=== PATIENT | female | born 1935 | race Caucasian/White ===

== ENCOUNTER 2019-10-12 00:18 | Outpatient (CLI) | payer MEDICARE, OTHER, SELFPAY ==
[2019-10-12 18:54] LABS: SARS-CoV-2 RNA PCR Negative
== END 2019-10-12 00:19 | disposition home or self-care (01) ==
LOC: ANHCOVIDDT 00:22
PROVIDERS: PCP Pediatrics; Visit Provider Internal Medicine Gastroenterology
DX: Z01.812 Encounter for preprocedural laboratory examination (principal); Z20.828 Contact with and (suspected) exposure to other viral communicable diseases
CPT/HCPCS: 87635; C9803; U0003

== ENCOUNTER 2019-10-14 00:38 | Day surgery (SDC) | payer MEDICARE, OTHER, SELFPAY ==
--- NOTE | 2019-10-14 08:00 | P.CONGI_ITS ---
Assessment and Plan Assessment and plan (1) MARIA LUISA (iron deficiency anemia): Code(s): D50.9 - Iron deficiency anemia, unspecified Status: Acute Assessment and Plan: Patient with iron deficiency anemia and diagnosed incidentally on routine screening exam. Also with stool Hemoccult positive stools in 3/3 examples. Plan is for GI endoscopy including both colonoscopy an EGD to assess more thoroughly the possible etiology for this iron replacement is subsequently advised. (2) Occult blood in stools: Code(s): R19.5 - Other fecal abnormalities Status: Acute GI Consult Note Consult date/time: 10/14/19 08:00 HPI: Monique Rosales is a 84 year old female seen in evaluation at the request of Dr Talon Merchant. Patient seen in evaluation because of anemia. She had routine lab testing in July of 2019 finding at which time she was found to be anemic with microcytic indices. Iron studies were found to be consistent with iron deficiency. Recent stool Hemoccult test was found to be positive on 3 o ccasions. Patient denies any obvious blood in her stools. She states her weight appetite bowel movements are normal. She denies abdominal pain she has had no bleeding. Her family history is noncontributory. Review of Systems Review of Systems: All systems reviewed & are unremarkable except as noted in HPI and below Meds Home Medications and Allergies Home Medications Medication Instructions Recorded Confirmed Type aspirin 325 mg PO DAILY 10/06/19 10/06/19 History levothyroxine 50 mcg PO DAILY 10/06/19 10/06/19 History Allergies Allergy/AdvReac Type Severity Reaction Status Date / Time No Known Allergies Allergy Verified 10/14/19 08:00 Exam Narrative: Exam Narrative: Physical exam reveals patient to be alert. Vital signs stable. HEENT exam unremarkable. Lungs are clear to auscultation and percussion. Heart is without murmur or extra sounds. Abdominal exam bowel sounds are present soft nontender with no organomegaly. Digital external rectal exam is normal.
[2019-10-14 08:01] VITALS: BP 183/117; PULSE 118; RESP 18; TEMP 36.3; O2SAT 99
--- NOTE | 2019-10-14 08:19 | ECG_ITS ---
Measurements Intervals [place] Rate: 105 P: W[place]: 0 QRS: 53 QRSD: 92 T: 5 QT: 328 QTc: 434 Interpretive Statements ATRIAL FLUTTER/TACHYCARDIA WITH RAPID VENTRICULAR RESPONSE VENTRICULAR PREMATURE COMPLEXES BORDERLINE ST-T WAVE ABNORMALITY- INFERIOR LEADS BASELINE ARTIFACT- V5 ABNORMAL ECG Electronically Signed On 10-14-2019 8:29:31 CDT by Roby Garza D.O.
[2019-10-14] MEDS: LACTATED RINGERS 1,000 ML 150 ML IV CONT (08:30)
--- NOTE | 2019-10-14 08:40 | SUR.PREOP ---
Spoke with Galina Arnold NP about new consult from Dr Sloan regarding new Aflutter.
--- NOTE | 2019-10-14 09:57 | WPDANESEPPF ---
Anes - Initial Pre Proc Eval Procedure: Operation Date: 10/14/19 08:30 Proposed Procedures p Esophagogastroduodenoscopy & Colonoscopy - Lowell Crowe MD Date/Time: 10/14/19 09:57 Surgeon: Lowell Crowe MD Pre Op Diagnosis: Microcytic Anemia Patient Data Age: 84 Gender: F Height: 5 ft 7 in Weight: 88.5 kg Last Vital Signs Temp 97.4 F L 10/14/19 08:01 Pulse 118 H 10/14/19 08:01 Resp 18 10/14/19 08:01 BP 183/117 H 10/14/19 08:01 Pulse Ox 99 10/14/19 08:01 Allergies Allergy/AdvReac Type Severity Reaction Status Date / Time No Known Allergies Allergy Verified 10/14/19 08:00 Home Medications Medication Instructions Recorded Confirmed Type aspirin 325 mg PO DAILY 10/06/19 10/06/19 History levothyroxine 50 mcg PO DAILY 10/06/19 10/14/19 History Patient hx anesthesia problems: none Family hx anesthesia problems: none [facility] Past Medical History Medical History (Updated 10/14/19 @ 09:56 by Chance Sloan MD) Anemia Atrial fibrillation had new onset AF; apparently had in July 2019; started on ASA; Cardiology saw this am and thought could proceed with procedure; will monitior post with monitoring and Metoprolol Hypothyroid Anes - Eval Final PreProcedure Day of Procedure 10/14/19 09:57 Patient weight: normal Heart: irregular rhythm Lungs: clear to auscultation Airway: Mallampati scale class II Neurological: alert and oriented Last oral intake: >/= 8 hours ASA classification: III Emergent: no Anesthetic plan: proceed Anesthesia type and monitoring: general GIVS and standard monitoring Informed Consent: The patient's anesthetic plan and its attendant risks and benefits were discussed with the patient/family/POA. Questions were solicited and answers provided to the satisfaction of the patient/family/POA.
[2019-10-14] MEDS: BENZOCAINE (*SP) 60 ML SPRAY CAN (HURRICAINE) 1 SPRAY MUCOUS MEM (10:06)
--- NOTE | 2019-10-14 10:15 | WPDANESEPPF ---
Anes - Initial Pre Proc Eval Procedure: Operation Date: 10/14/19 08:30 Proposed Procedures p Esophagogastroduodenoscopy & Colonoscopy - Lowell Crowe MD Date/Time: 10/14/19 10:15 Surgeon: Lowell Crowe MD Pre Op Diagnosis: Microcytic Anemia Patient Data Age: 84 Gender: F Height: 5 ft 7 in Weight: 88.5 kg Last Vital Signs Temp 97.4 F L 10/14/19 08:01 Pulse 118 H 10/14/19 08:01 Resp 18 10/14/19 08:01 BP 183/117 H 10/14/19 08:01 Pulse Ox 99 10/14/19 08:01 Allergies Allergy/AdvReac Type Severity Reaction Status Date / Time No Known Allergies Allergy Verified 10/14/19 08:00 Home Medications Medication Instructions Recorded Confirmed Type aspirin 325 mg PO DAILY 10/06/19 10/06/19 History levothyroxine 50 mcg PO DAILY 10/06/19 10/14/19 History metoprolol tartrate 25 mg PO Q12H #60 tablet 10/14/19 Rx Patient hx anesthesia problems: none Family hx anesthesia problems: none COUNTS INCLUDE 234 BEDS AT THE [facility] Past Medical History Medical History (Updated 10/14/19 @ 09:56 by Chance Sloan MD) Anemia Atrial fibrillation had new onset AF; apparently had in July 2019; started on ASA; Cardiology saw this am and thought could proceed with procedure; will monitior post with monitoring and Metoprolol Hypothyroid Anes - Eval Final PreProcedure Day of Procedure 10/14/19 10:15 Informed Consent: The patient's anesthetic plan and its attendant risks and benefits were discussed with the patient/family/POA. Questions were solicited and answers provided to the satisfaction of the patient/family/POA.
--- NOTE | 2019-10-14 10:22 | PM.CNCAR ---
Assessment and Plan Assessment and plan (1) Atrial flutter with rapid ventricular response: Code(s): I48.92 - Unspecified atrial flutter Status: Acute Assessment and Plan: New diagnosis apparently since July. patient is completely asymptomatic. She declined systemic anticoagulation advised by her PCP in July agreeing only to aspirin 325 mg daily. She was also noted to be anemic at that time. Heart rate ranged from low 100s to up to 150 beats per minute better controlled at this time. -Systemic anticoagulation advised depending upon results of endoscopy if deemed appropriate. We discussed the relative risks and benefits with aspirin versus systemic anticoagulation. All questions answered to her satisfaction. Patient is not a great anticoagulation at this time as she states her of a bleed in his head on anticoagulation. I emphasized with her in this regard and explained circumstances and the perceived high risk for embolic stroke versus intra cerebral bleed. Patient understands but does not agree at this time. 1. From a cardiac perspective there is no clear contraindication to endoscopy as planned. Patient tolerated procedure well as noted in the system after my evaluation. findings noted as documented in the HPI. Aspirin at direction GI as this will increase bleeding risk. 2. Provided patient is not sustaining higher than 130 beats per minute she may be discharged on Metoprolol 25mg BID. She agrees only to ASA 325mg daily. We discussed bleeding risk accordingly and dependents risks dependent upon findings. Discussed with Anesthesiology to give IV Metoprolol for HR control who agreed. 3. Outpatient 48 Hour Holter monitor in our office 4. 2D Echo as outpatient to be set up in our office 5. Follow up in our office within 2 weeks. 6. If pt sustaining >130bpm favor admission to Hospitalist Service and we will follow along in consultation. Thank you very much for this consultation. Please do not hesitate to contact us with any additional questions or concerns. (2) HTN (hypertension): Code(s): I10 - Essential (primary) hypertension Status: Acute Assessment and Plan: BP significantly elevated at presentation, she is not on antihypertensives home. Metoprolol will be initiated. Repeat blood pressure and remains significantly elevated recommendations to follow or if BP reasonable defer to PCP for management. would avoid initiating multiple medications at this time as she remains on an outpatient basis. (3) Occult blood in stools: Code(s): R19.5 - Other fecal abnormalities Status: Acute Assessment and Plan: Per GI. (4) MARIA LUISA (iron deficiency anemia): Code(s): D50.9 - Iron deficiency anemia, unspecified Status: Acute Assessment and Plan: Per GI and PCP. Labs unavailable for review. (5) Hypothyroid: Code(s): E03.9 - Hypothyroidism, unspecified Status: Acute Assessment and Plan: Levothyroxine. Review labs when available. History of Present Illness History of Present Illness Consult date/time: Date of service: 10/14/19 10:22 This is a cardiology consultation at request of Dr. Sloan of Anesthesiology for our opinion regarding atrial flutter with rapid ventricular response. Patient seen at bedside endoscopy lab. Requesting physician: Chance Sloan MD Consult reason: atrial fibrillation (atrial flutter with RVR) Reason For Visit: Microcytic Anemia Narrative: Patient is a very pleasant 84-year-old female with past medical history significant for Hypothyroidism and recent diagnosis of anemia who presents as an outpatient for scheduled upper endoscopy. Patient reports having evaluation by her PCP in July were was noted her heart rate was elevated for which Eliquis recommended. She declined at that time given complications or experience with head bleed. She agreed only to aspirin 325 mg daily. No additional me
--- NOTE | 2019-10-14 10:25 | SUR.OPER ---
1001 10/14/19 preop rajiv Singh called son in law [place], when pt on the way back to procedure room
[2019-10-14 10:45] VITALS: BP 112/77; PULSE 87; RESP 20; O2SAT 97
[2019-10-14 10:55] VITALS: BP 107/61; PULSE 94; RESP 18; O2SAT 97
[2019-10-14 11:05] VITALS: BP 111/57; PULSE 97; RESP 20; O2SAT 99
[2019-10-14 11:15] VITALS: BP 141/98; PULSE 92; RESP 20; O2SAT 100
--- NOTE | 2019-10-14 11:23 | SUR.PHASEII ---
1116: DR MUÑOZ NOTIFIED PT AWAKE AND ALERT, B/P 141/98, HR 92. NO NEW ORDERS.
--- NOTE | 2019-10-14 11:42 | SUR.PHASEII ---
1135: PT DISCHARGED. ALL INSTRUCTIONS FROM GI LAB AND CARDIOLOGY GIVEN AND EXPLAINED TO SON IN LAW TALIA. STATES UNDERSTANDING. PT TAKEN TO CARDIOLOGY OFFICE WITH TALIA, NO CONCERNS.
== END 2019-10-14 11:35 | disposition home or self-care (01) ==
PROVIDERS: PCP Pediatrics; Visit Provider Internal Medicine Gastroenterology
PROC: 0DJ08ZZ Inspection of Upper Intestinal Tract, Via Natural or Artificial Opening Endoscopic (ICD-10-PCS; CPT 43235; principal; 2019-10-14 08:30)
DX: D50.9 Iron deficiency anemia, unspecified (principal); R19.5 Other fecal abnormalities; K64.8 Other hemorrhoids; K21.0 Gastro-esophageal reflux disease with esophagitis; Q39.4 Esophageal web; K44.9 Diaphragmatic hernia without obstruction or gangrene; K31.7 Polyp of stomach and duodenum; I48.92 Unspecified atrial flutter; I10 Essential (primary) hypertension; E03.9 Hypothyroidism, unspecified; Z79.82 Long term (current) use of aspirin
CPT/HCPCS: 43450; 43235; 45378; 93005; J2704; J7120

== ENCOUNTER 2019-12-15 03:34 | Outpatient (CLI) | payer MEDICARE, OTHER, SELFPAY ==
[2019-12-15 19:05] LABS: SARS-CoV-2 RNA PCR Negative
== END 2019-12-15 03:35 | disposition home or self-care (01) ==
LOC: ANHCOVIDDT 03:34
PROVIDERS: PCP Pediatrics; Visit Provider Internal Medicine Gastroenterology
DX: Z01.812 Encounter for preprocedural laboratory examination (principal); Z20.828 Contact with and (suspected) exposure to other viral communicable diseases
CPT/HCPCS: 87635; C9803; U0003

== ENCOUNTER 2019-12-17 02:34 | Day surgery (SDC) | payer MEDICARE, OTHER, SELFPAY ==
[2019-12-09 15:05] VITALS: BMI 29.7
[2019-12-17 09:07] VITALS: BP 177/61; PULSE 77; RESP 16; TEMP 36.1; O2SAT 96; BMI 31.2
[2019-12-17] MEDS: LACTATED RINGERS 1,000 ML 150 ML IV CONT (09:24)
--- NOTE | 2019-12-17 09:42 | WPDANESEPPF ---
Anes - Initial Pre Proc Eval Procedure: Operation Date: 12/17/19 10:00 Proposed Procedures p Esophagogastroduodenoscopy - Lowell Crowe MD Date/Time: 12/17/19 09:42 Surgeon: Lowell Crowe MD Pre Op Diagnosis: esophagitis Patient Data Age: 84 Gender: F Height: 1.7 m Weight: 90.6 kg Last Vital Signs Temp 36.1 C L 12/17/19 09:07 Pulse 77 12/17/19 09:07 Resp 16 12/17/19 09:07 BP 177/61 H 12/17/19 09:07 Pulse Ox 96 12/17/19 09:07 Allergies Allergy/AdvReac Type Severity Reaction Status Date / Time No Known Allergies Allergy Verified 12/17/19 09:06 Home Medications Medication Instructions Recorded Confirmed Type aspirin 325 mg PO DAILY 10/06/19 12/17/19 History levothyroxine 50 mcg PO DAILY 10/06/19 12/17/19 History metoprolol tartrate 25 mg PO Q12H #60 tablet 10/14/19 12/17/19 Rx ferrous sulfate 325 mg PO BID 12/09/19 12/17/19 History Patient hx anesthesia problems: none Family hx anesthesia problems: none PMFSH Past Medical History Medical History (Updated 12/17/19 @ 09:43 by Maurizio Hatfield MD) Anemia Atrial fibrillation had new onset AF; apparently had in July 2019; started on ASA; Cardiology saw this am and thought could proceed with procedure; will monitior post with monitoring and Metoprolol Atrial flutter with rapid ventricular response Chronic GERD HTN (hypertension) Hypothyroid Obesity Social History Social History Living arrangements: alone Gender identity (if verbalized by the patient): Female Spiritual care concerns: No Anes - Eval Final PreProcedure Day of Procedure 12/17/19 09:42 Patient weight: obese Heart: regular rate and rhythm Lungs: clear to auscultation and normal air movement Airway: Mallampati scale class II Neurological: alert and oriented Last oral intake: >/= 8 hours ASA classification: III Emergent: no Anesthetic plan: proceed Anesthesia type and monitoring: general GIVS Informed Consent: The patient's anesthetic plan and its attendant risks and benefits were discussed with the patient/family/POA. Questions were solicited and answers provided to the satisfaction of the patient/family/POA.
--- NOTE | 2019-12-17 09:51 | WPDGICN ---
Assessment and Plan Assessment and plan (1) Chronic GERD: Code(s): K21.9 - Gastro-esophageal reflux disease without esophagitis Status: Acute (2) Ulcerative esophagitis: Code(s): K22.10 - Ulcer of esophagus without bleeding Status: Acute Assessment and Plan: Patient has a history of ulcerative esophagitis and gastric polyps by recent EGD plan is for follow-up exam at this time. Appears that this is related to chronic GE reflux disease. Long-term anti-reflux measures as well as proton pump inhibitor therapy is advised. (3) Gastric polyps: Code(s): K31.7 - Polyp of stomach and duodenum Status: Acute GI Consult Note Consult date/time: 12/17/19 09:51 HPI: Monique Rosales is a 84 year old female seen in evaluation at the request of Dr Merchant. Patient has a history of iron deficiency anemia. EGD several months ago revealed erosive esophagitis as well as several gait benign gastric polyps. Patient presents today for follow-up examination. She has been maintained on proton pump inhibitors in the interim period as well as iron replacement. She currently denies any heartburn. She states this is not changed. She eats well without difficulty. She denies any dysphagia. She denies any bleeding. She denies any weight loss. Review of Systems Review of Systems: All systems reviewed & are unremarkable except as noted in HPI and below PMFSH Past Medical History Medical History (Updated 12/17/19 @ 09:53 by Lowell Crowe MD) Anemia Atrial fibrillation had new onset AF; apparently had in July 2019; started on ASA; Cardiology saw this am and thought could proceed with procedure; will monitior post with monitoring and Metoprolol Atrial flutter with rapid ventricular response Chronic GERD HTN (hypertension) Hypothyroid Obesity Social History Social History Living arrangements: alone Gender identity (if verbalized by the patient): Female Spiritual care concerns: No Meds Home Medications and Allergies Home Medications Medication Instructions Recorded Confirmed Type aspirin 325 mg PO DAILY 10/06/19 12/17/19 History levothyroxine 50 mcg PO DAILY 10/06/19 12/17/19 History metoprolol tartrate 25 mg PO Q12H #60 tablet 10/14/19 12/17/19 Rx ferrous sulfate 325 mg PO BID 12/09/19 12/17/19 History Allergies Allergy/AdvReac Type Severity Reaction Status Date / Time No Known Allergies Allergy Verified 12/17/19 09:06 Vital Signs Vital Signs - 24 hr 12/17/19 09:07 Temperature 97.0 F L Pulse Rate 77 Respiratory Rate 16 Blood Pressure 177/61 H Pulse Oximetry 96 Exam Narrative: Exam Narrative: patient is alert. Vital signs stable. HEENT exam unremarkable. Lungs are clear to auscultation and percussion. Heart is without murmur or extra sounds. Abdominal exam bowel sounds are present soft nontender with no organomegaly. Digital external rectal exam normal.
[2019-12-17 10:09] VITALS: BP 116/65; PULSE 81; RESP 18; O2SAT 94
[2019-12-17 10:19] VITALS: BP 107/78; PULSE 71; RESP 17; O2SAT 98
[2019-12-17 10:29] VITALS: BP 124/64; PULSE 61; RESP 21; O2SAT 98
[2019-12-17 10:39] VITALS: BP 129/70; PULSE 62; RESP 18; O2SAT 99
== END 2019-12-17 10:57 | disposition home or self-care (01) ==
PROVIDERS: PCP Pediatrics; Visit Provider Internal Medicine Gastroenterology
PROC: 0DJ08ZZ Inspection of Upper Intestinal Tract, Via Natural or Artificial Opening Endoscopic (ICD-10-PCS; CPT 43235; principal; 2019-12-17 10:00)
DX: K21.9 Gastro-esophageal reflux disease without esophagitis (principal); K29.50 Unspecified chronic gastritis without bleeding; K22.10 Ulcer of esophagus without bleeding; K31.7 Polyp of stomach and duodenum; I48.20 Chronic atrial fibrillation, unspecified; E66.9 Obesity, unspecified; E03.9 Hypothyroidism, unspecified; Z79.82 Long term (current) use of aspirin
CPT/HCPCS: 43251; 88305; J2704; J7120

== ENCOUNTER 2022-12-19 02:11 | Day surgery (SDC) | payer MEDICARE, OTHER, SELFPAY ==
[2022-12-10 16:02] VITALS: BMI 31.1
[2022-12-19 08:30] VITALS: BP 172/84; PULSE 58; RESP 16; TEMP 36.1; O2SAT 100; BMI 29.7
[2022-12-19] MEDS: LACTATED RINGERS 1,000 ML 150 ML IV CONT (09:29)
--- NOTE | 2022-12-19 09:29 | PM.HPGS ---
History of Present Illness History of Present Illness Consent: Risks, benefits, and alternatives have been discussed and questions answered. Patient agrees to proceed with procedure. Chief complaint: anemia Narrative: Monique Rosales is a 87 year old female Referred by Dr. Edil Grant. patient referred because of anemia. No labs accompany the patient. Patient has a history of being seen by our service for iron deficiency anemia in 2019. Colonoscopy revealed hemorrhoids. EGD revealed significant esophagitis and gastric polyps that were benign. Patient reports that she now is on Eliquis because of atrial fibrillation. In August of 2021 experience pulmonary emboli while in [place]. She subsequently has been seen at [facility] Cardiology, Pulmonary and Hematology. Patient reports that most recent CBC has normalized but at 1 point she did receive iron infusions. Patient referred now for EGD because of her history of findings on previous endoscopy. Patient denies any heartburn. She has no dysphagia. She has no bleeding. She denies abdominal pain. Her bowel habits reported to be normal. Review of Systems Review of Systems: Review of systems noncontributory. [facility] Past Medical History Medical History (Updated 12/19/22 @ 09:32 by Lowell Crowe MD) Anemia Atrial fibrillation had new onset AF; apparently had in July 2019; started on ASA; Cardiology saw this am and thought could proceed with procedure; will monitior post with monitoring and Metoprolol Atrial flutter with rapid ventricular response Chronic GERD HTN (hypertension) Hypothyroid Obesity Social History Social History Smoking status: Never smoker Alcohol intake: current Substance use: never Substance use type: does not use Living arrangements: with family Gender identity (if verbalized by the patient): Female Spiritual care concerns: No Meds Home Medications and Allergies Home Medications Medication Instructions Recorded Confirmed Type levothyroxine 50 mcg tablet 50 mcg PO DAILY 10/06/19 12/10/22 History metoprolol tartrate 25 mg tablet 25 mg PO Q12H #60 tabs 10/14/19 12/10/22 Rx apixaban 2.5 mg tablet (Eliquis) 2.5 mg PO BID 12/10/22 12/10/22 History ferrous sulfate 200 mg (40 mg 40 mg PO BID 12/10/22 12/10/22 History iron) tablet Allergies Allergy/AdvReac Type Severity Reaction Status Date / Time No Known Allergies Allergy Verified 12/10/22 16:02 Vital Signs Vital Signs - 24 hr 12/19/22 08:30 Temperature 97 F L Pulse Rate 58 L Respiratory Rate 16 Blood Pressure 172/84 H Pulse Oximetry 100 Oxygen Delivery Room Air Exam Narrative: Physical exam reveals patient to be alert. Vital signs stable. HEENT exam is unremarkable. Patient is anicteric. Lungs are clear to auscultation and percussion. Heart is without murmur or extra sounds. Abdomen bowel sounds are present soft nontender with no organomegaly. Assessment and Plan Assessment and plan (1) Chronic GERD: Code(s): K21.9 - Gastro-esophageal reflux disease without esophagitis Status: Acute Assessment and Plan: Patient with a history of esophagitis attributes it to acid reflux. Patient denies heartburn or difficulty swallowing at present. No longer on acid reducing agents. EGD is requested. (2) History of anemia: Code(s): Z86.2 - Personal history of diseases of the blood and blood-forming organs and certain disorders involving the immune mechanism Status: Acute Assessment and Plan: Patient has a history of anemia. No recent blood work to confirm this. Patient reports recent CBC done at [facility] was normalized. She is on Eliquis which could put her at risk of bleeding. EGD requested to determine safety of anticoagulation.
--- NOTE | 2022-12-19 09:46 | P.PNAN_ITS ---
Anes - Initial Pre Proc Eval Procedure: Operation Date: 12/19/22 10:00 Proposed Procedures p Esophagogastroduodenoscopy - Lowell Crowe MD Date/Time: 12/19/22 09:46 Surgeon: Lowell Crowe MD Pre Op Diagnosis: anemia Patient Data Age: 87 Gender: F Height: 1.7 m Weight: 86.3 kg Last Vital Signs Temp 97 F L 12/19/22 08:30 Pulse 58 L 12/19/22 08:30 Resp 16 12/19/22 08:30 BP 172/84 H 12/19/22 08:30 Pulse Ox 100 12/19/22 08:30 O2 Del Method Room Air 12/19/22 08:30 Allergies Allergy/AdvReac Type Severity Reaction Status Date / Time No Known Allergies Allergy Verified 12/10/22 16:02 Home Medications Medication Instructions Recorded Confirmed Type levothyroxine 50 mcg tablet 50 mcg PO DAILY 10/06/19 12/10/22 History metoprolol tartrate 25 mg tablet 25 mg PO Q12H #60 tabs 10/14/19 12/10/22 Rx apixaban 2.5 mg tablet (Eliquis) 2.5 mg PO BID 12/10/22 12/10/22 History ferrous sulfate 200 mg (40 mg 40 mg PO BID 12/10/22 12/10/22 History iron) tablet Patient hx anesthesia problems: none Family hx anesthesia problems: none Results Review: All pre-operative results and documents have been reviewed as part of the pre- operative evaluation. [facility] Past Medical History Medical History (Updated 12/19/22 @ 09:32 by Lowell Crowe MD) Anemia Atrial fibrillation had new onset AF; apparently had in July 2019; started on ASA; Cardiology saw this am and thought could proceed with procedure; will monitior post with monitoring and Metoprolol Atrial flutter with rapid ventricular response Chronic GERD HTN (hypertension) Hypothyroid Obesity Social History Social History Smoking status: Never smoker Alcohol intake: current Substance use: never Substance use type: does not use Living arrangements: with family Gender identity (if verbalized by the patient): Female Spiritual care concerns: No Anes - Eval Final PreProcedure Day of Procedure 12/19/22 09:46 Patient weight: normal Heart: regular rate and rhythm Lungs: clear to auscultation Airway: Mallampati scale class II Neurological: alert and oriented Last oral intake: >/= 8 hours ASA classification: IV Emergent: no Anesthetic plan: proceed Anesthesia type and monitoring: general GIVS and standard monitoring Results Review: All pre-operative results and documents have been reviewed as part of the pre-operative evaluation. Informed Consent: The patient's anesthetic plan and its attendant risks and benefits were discussed with the patient/family/POA. Questions were solicited and answers provided to the satisfaction of the patient/family/POA.
[2022-12-19 10:24] VITALS: BP 136/66; PULSE 61; RESP 16; O2SAT 96
[2022-12-19 10:34] VITALS: BP 136/65; PULSE 57; RESP 20; O2SAT 100
[2022-12-19 10:44] VITALS: BP 140/66; PULSE 58; RESP 20; O2SAT 100
== END 2022-12-19 11:07 | disposition home or self-care (01) ==
PROVIDERS: PCP Pediatrics; Visit Provider Internal Medicine Gastroenterology
PROC: 0DJ08ZZ Inspection of Upper Intestinal Tract, Via Natural or Artificial Opening Endoscopic (ICD-10-PCS; CPT 43235; principal; 2022-12-19 10:00)
DX: K21.00 Gastro-esophageal reflux disease with esophagitis, without bleeding (principal); I48.91 Unspecified atrial fibrillation; I10 Essential (primary) hypertension; E03.9 Hypothyroidism, unspecified; E66.9 Obesity, unspecified; Z68.29 Body mass index [BMI] 29.0-29.9, adult; Z79.01 Long term (current) use of anticoagulants; Z86.2 Personal history of diseases of the blood and blood-forming organs and certain disorders involving the immune mechanism
CPT/HCPCS: 43235; J2704; J7120